=== PATIENT | male | born 1930 | race Caucasian/White ===

== ENCOUNTER 2017-08-14 16:55 | Emergency (ER) | payer MEDICARE, OTHER ==
[~2017-08-14] VITALS: Ht 157.5 cm; Wt 69.5 kg
[~2017-08-14 16:55] MED LIST: AMLO5TAB8 PO; BENA20TA10 PO; CALC500T76 PO; FERR325E14 PO; GLIP10TA12 PO; LANTUS SUBQ; METF100028 PO; PRAV80TA17 PO; VALS40TA3 PO
[2017-08-14 17:12] VITALS: BP 136/64
--- NOTE | 2017-08-14 17:13 | NUR ---
PT W/C ASSISTED TO BED 2.
--- NOTE | 2017-08-14 17:15 | NUR ---
patient was brought in via private vehicle for c/o mouth pain, nasal and left cheek area pain. per daughter, patient had a recent tooth extraction and today is not behaving in his usual self. patient is alert and oriented. respirations are even and unlabored. no cough or dyspnea observed. denies any fever, chills, n,v,d. skin is w,d, i. awaiting md evaluation. will continue to monitor.
--- NOTE | 2017-08-14 17:30 | NUR ---
Dr. Piña at bedside for examination.
[2017-08-14] MEDS ORDERED: NACL 0.9% 1,000 ML IV ONE (17:40)
[2017-08-14] MEDS ORDERED: ACYCLOVIR 700 MG in NACL 0.9% 100 ML IV ONE (17:40)
[2017-08-14] MEDS ORDERED: FLUORESCEIN OPTH STRIP 0.6 MG OP ONE (17:40)
[2017-08-14] MEDS ORDERED: TETRACAINE HCL/PF 0.5% OPTH 4 ML BTL OP ONE (17:40)
[2017-08-14] MEDS ORDERED: ACYCLOVIR 500 MG VIAL IV ONE (17:50)
--- NOTE | 2017-08-14 18:10 | NUR ---
blood samples collected and given to lab.
--- NOTE | 2017-08-14 18:30 | NUR ---
Notired daughter Dot of patient's transfer to [facility], and in agreement.
[2017-08-14 18:38] LABS: CARBON DIOXIDE 23.8 mmol/L (21-32); CHLORIDE 101 mmol/L (98-107); GLUCOSE 110 mg/dL (74-106); POTASSIUM 3.8 mmol/L (3.5-5.1); SODIUM SERUM 136 mmol/L (136-145); UREA NITROGEN, BLOOD 17 mg/dL (7-18)
[2017-08-14 18:45] LABS: BASOPHILS # (AUTO) 0.1 K/uL (0.00-0.22); LYMPHOCYTES # (AUTO) 0.9 K/uL (2.0-11.5); MONOCYTES # (AUTO) 0.6 K/uL (0.8-1.0); RED CELL DISTRIBUTION WIDTH 13.4 % (11.6-13.7)
[2017-08-14 18:48] LABS: HEMATOCRIT 40.2 % (36-52); HEMOGLOBIN 13.4 g/dL (12.0-18.0); MEAN CORPUSCULAR HEMOGLOBIN 30 pg (27-31); MEAN CORPUSCULAR HGB CONC 33 g/dL (33-37); MEAN CORPUSCULAR VOLUME 88 fL (80-94); PLATELET COUNT (AUTO) 197 K/uL (140-450); RED BLOOD CELL COUNT(AUTO) 4.55 MIL/uL (4.20-6.10); WHITE BLOOD COUNT (AUTO) 4.6 K/uL (4.8-10.8)
--- NOTE | 2017-08-14 18:58 | NUR ---
[facility] here, report given regarding patient's condition. Called over to [facility] at [phone], per Bacilio requesting to call back in ten minutes.
--- NOTE | 2017-08-14 19:17 | NUR ---
Follow up made to [facility], report given to SANJU Beal.
--- NOTE | 2017-08-14 19:26 | NUR ---
[facility] TRANSPORT HERE TO BRING PT TO [facility]
[2017-08-14 19:29] VITALS: BP 128/59
--- NOTE | 2017-08-14 19:29 | NUR ---
Patient to be transferred to [facility] ER. 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 Receiving facility has accepting physician and available space. ER physician has signed transfer form. Patient or responsible libertarian has agreed to transfer and signed form. Patient belongings inventoried and will be sent with patient. Copy of nursing notes, lab reports, EKG, Physicians Orders and X-rays to be sent with patient. Report called to SANJU Beal at receiving facility. [facility] here on scene, report given, pt being transferred via gurney to [facility] at this time.
== END 2017-08-14 19:29 | disposition short-term general hospital (02) ==
LOC: MED 16:55
DX: B02.30 Zoster ocular disease, unspecified (principal); E11.9 Type 2 diabetes mellitus without complications; I10 Essential (primary) hypertension; Z90.49 Acquired absence of other specified parts of digestive tract; Z79.899 Other long term (current) drug therapy; Z79.4 Long term (current) use of insulin
CPT/HCPCS: 36415; 80048; 82948; 85025; 96365; 99285; J0133; J7030

== ENCOUNTER 2018-02-25 11:42 | Emergency (ER) | payer MEDICARE, OTHER ==
[~2018-02-25] VITALS: Ht 165.1 cm; Wt 77.1 kg
[2018-02-25 11:50] VITALS: BP 128/59
[2018-02-25] MEDS: IPRATROPIUM 0.02% 0.5 MG/2.5 ML NEBU INH ONE (13:35)
[2018-02-25] MEDS: ALBUTEROL 0.083% 2.5 MG/3 ML NEBU INH ONE (13:35)
[2018-02-25] MEDS: methylPREDNISolone SS 125 MG/2 ML VIAL IVP ONE (13:53)
[2018-02-25] MEDS: NACL 0.9% 500 ML IV SCH (13:54)
[2018-02-25 14:00] LABS: BASOPHILS % (AUTO) 0.3 % (0.0-2.0); EOSINOPHILS # (AUTO) 0.1 K/uL (0-0.4); EOSINOPHILS % (AUTO) 0.4 % (0.0-4.0); HEMATOCRIT 33.4 % (36-52); HEMOGLOBIN 10.6 g/dL (12.0-18.0); LYMPHOCYTES # (AUTO) 1.6 K/uL (2.0-11.5); LYMPHOCYTES % (AUTO) 12.6 % (20.5-51.1); MEAN CORPUSCULAR HEMOGLOBIN 26 pg (27-31); MEAN CORPUSCULAR HGB CONC 32 g/dL (33-37); MEAN CORPUSCULAR VOLUME 82.6 fL (80-94); MONOCYTES # (AUTO) 0.9 K/uL (0.8-1.0); MONOCYTES % (AUTO) 6.6 % (1.7-9.3); NEUTROPHILS # (AUTO) 10.3 K/uL (1.8-7.7); NEUTROPHILS % (AUTO) 80.1 % (42.2-75.2); PLATELET COUNT (AUTO) 281 K/uL (140-450); RED BLOOD CELL COUNT(AUTO) 4.04 MIL/uL (4.20-6.10); RED CELL DISTRIBUTION WIDTH 16.1 % (11.6-13.7); WHITE BLOOD COUNT (AUTO) 12.9 K/uL (4.8-10.8)
[2018-02-25 14:07] LABS: APPEARANCE,URINE CLEAR (CLEAR); BILIRUBIN,URINE 1+ (NEGATIVE); BLOOD, URINE TRACE-I (NEGATIVE); COLOR,URINE ORANGE (YELLOW); LEUKOCYTE ESTERASE ,URINE NEGATIVE (NEGATIVE); NITRITE, URINE NEGATIVE (NEGATIVE); UGLUCOSE NEGATIVE (NEGATIVE)
[2018-02-25 14:17] LABS: ANION GAP 11.9 (8-16); CARBON DIOXIDE 24.7 mmol/L (21-32); CHLORIDE 103 mmol/L (98-107); CREATININE 1.1 mg/dL (0.7-1.3); GLUCOSE 81 mg/dL (74-106); POTASSIUM 3.6 mmol/L (3.5-5.1); SODIUM SERUM 136 mmol/L (136-145); UREA NITROGEN, BLOOD 20 mg/dL (7-18)
[2018-02-25 14:20] LABS: PROTHROMBIN TIME 9.8 secs (10.8-13.4)
[2018-02-25 14:23] LABS: ALBUMIN 3.4 g/dL (3.4-5.0); ASPARTATE AMINOTRANSFERASE 23 U/L (15-37); TOTAL BILIRUBIN 0.8 mg/dL (0.0-1.0)
[2018-02-25 15:16] LABS: RBC,URINE 0-5 (RARE) /HPF (0-5); WBC,URINE 0-5 (RARE) /HPF (0-5)
[2018-02-25 15:50] VITALS: BP 122/53
== END 2018-02-25 15:50 | disposition home or self-care (01) ==
LOC: MED 11:42
DX: B34.9 Viral infection, unspecified (principal); J98.01 Acute bronchospasm; E11.9 Type 2 diabetes mellitus without complications; I10 Essential (primary) hypertension; Z79.4 Long term (current) use of insulin; Z79.899 Other long term (current) drug therapy; Z90.49 Acquired absence of other specified parts of digestive tract
CPT/HCPCS: 36415; 36600; 71045; 80053; 81001; 82803; 83605; 83880; 84484; 85025; 85610; 85730; 87040; 87086; 93005; 94640; 96361; 96374; 99285; J2930; J7030; J7613; J7644; Q0092

== ENCOUNTER 2018-03-03 13:08 | Inpatient (IN) | payer MEDICARE, OTHER ==
[~2018-03-03] VITALS: Ht 167.6 cm; Wt 59.9 kg
[2018-03-03 13:15] VITALS: BP 109/59
--- NOTE | 2018-03-03 13:26 | NUR ---
Patient transferred to bed 5 via wheelchair by nurse. Family at bedside.
--- NOTE | 2018-03-03 13:34 | NUR ---
C/O COUGH WITH SPUTUM AND FEVER X 6 DAYS. DENIES SOB.generlized weakness noted. DENIES N/V/D; SKIN IS PINK/WARM/DRY; awake, alert; LUNGS wheezes BL; HR EVEN AND REGULAR; PT DENIES ANY FEVER, CP, SOB, OR COUGH AT THIS TIME; PATIENT STATES PAIN OF 4/10 AT THIS TIME; VSS; PATIENT POSITIONED FOR COMFORT; HOB ELEVATED; BEDRAILS UP X2; BED DOWN. ER MD MADE AWARE OF PT STATUS.family at bedside.
--- NOTE | 2018-03-03 13:50 | NUR ---
technical assistance consultant at bedside.
[2018-03-03 13:57] LABS: BASOPHILS % (AUTO) 0.2 % (0.0-2.0); EOSINOPHILS # (AUTO) 0.1 K/uL (0-0.4); EOSINOPHILS % (AUTO) 0.5 % (0.0-4.0); HEMATOCRIT 27.6 % (36-52); HEMOGLOBIN 9.1 g/dL (12.0-18.0); LYMPHOCYTES # (AUTO) 1.3 K/uL (2.0-11.5); LYMPHOCYTES % (AUTO) 9.4 % (20.5-51.1); MEAN CORPUSCULAR HEMOGLOBIN 27 pg (27-31); MEAN CORPUSCULAR HGB CONC 33 g/dL (33-37); MEAN CORPUSCULAR VOLUME 80.8 fL (80-94); MONOCYTES # (AUTO) 0.8 K/uL (0.8-1.0); MONOCYTES % (AUTO) 5.4 % (1.7-9.3); NEUTROPHILS % (AUTO) 84.5 % (42.2-75.2); PLATELET COUNT (AUTO) 402 K/uL (140-450); RED BLOOD CELL COUNT(AUTO) 3.42 MIL/uL (4.20-6.10); RED CELL DISTRIBUTION WIDTH 16.2 % (11.6-13.7); WHITE BLOOD COUNT (AUTO) 14.1 K/uL (4.8-10.8)
[2018-03-03 14:15] LABS: ANION GAP 11.9 (8-16); CARBON DIOXIDE 25.5 mmol/L (21-32); CHLORIDE 100 mmol/L (98-107); CREATININE 1.1 mg/dL (0.7-1.3); GLUCOSE 202 mg/dL (74-106); POTASSIUM 3.4 mmol/L (3.5-5.1); SODIUM SERUM 134 mmol/L (136-145); UREA NITROGEN, BLOOD 26 mg/dL (7-18)
[2018-03-03 14:24] LABS: ASPARTATE AMINOTRANSFERASE 28 U/L (15-37); TOTAL BILIRUBIN 0.6 mg/dL (0.0-1.0)
[2018-03-03 14:25] LABS: ALBUMIN 2.2 g/dL (3.4-5.0)
[2018-03-03] MEDS ORDERED: IPRATROPIUM 0.02% 0.5 MG/2.5 ML NEBU INH ONE (14:30)
[2018-03-03] MEDS ORDERED: NACL 0.9% 1,000 ML IV ONE (14:30)
[2018-03-03] MEDS ORDERED: cefTRIAXone 1,000 MG in DEXT 5% MINI-BAG PLUS 50 ML IV ONE (14:30)
[2018-03-03] MEDS ORDERED: ALBUTEROL 0.083% 2.5 MG/3 ML NEBU INH ONE (14:30)
[2018-03-03] MEDS ORDERED: AZITHROMYCIN 500 MG in DEXTROSE 5% 250 ML IV ONE (14:30)
[2018-03-03] MEDS ORDERED: cefTRIAXone 1,000 MG VIAL ONE (14:51)
[2018-03-03] MEDS ORDERED: AZITHROMYCIN 500 MG INJ VIAL IV ONE (14:52)
--- NOTE | 2018-03-03 15:45 | NUR ---
ASKED PT HOW HE IS DOING. PT STATED HE IS FINE. FAMILY AT BEDSIDE.
--- NOTE | 2018-03-03 16:26 | NUR ---
Dr. Dumont evaluating patient at bedside.
[2018-03-03] MEDS ORDERED: LORazepam 2 MG/ML VIAL IM/IVP PRN (16:40)
[2018-03-03] MEDS ORDERED: BISACODYL 5 MG TABEC PO PRN (16:40)
[2018-03-03] MEDS ORDERED: ACETAMINOPHEN 325 MG TAB PO PRN (16:40)
[2018-03-03] MEDS ORDERED: ALBUTEROL SULFATE/IPRATROPIU 3 ML SOL IH PRN (16:40)
[2018-03-03] MEDS ORDERED: MORPHINE SULFATE 2 MG/ML SYR IVP PRN (16:40)
[2018-03-03] MEDS ORDERED: DOCUSATE SODIUM 100 MG GELCAP PO PRN (16:40)
[2018-03-03] MEDS ORDERED: ZOLPIDEM 5 MG TAB PO PRN (16:40)
[2018-03-03] MEDS ORDERED: ONDANSETRON 4 MG/2 ML VIAL IM/IVP PRN (16:40)
[2018-03-03] MEDS ORDERED: MAGNESIUM HYDROXIDE 2400 MG/30 ML UDC PO PRN (16:40)
[2018-03-03] MEDS ORDERED: HYDROcodone/APAP 5/325 MG 1 TAB TAB PO PRN (16:40)
[2018-03-03] MEDS ORDERED: DEXTROSE 50% 50 ML SYR IVP PRN (16:45)
[2018-03-03 17:00] VITALS: BP 119/54
[2018-03-03] MEDS ORDERED: metFORMIN 500 MG TAB PO SCH (17:00)
--- NOTE | 2018-03-03 17:00 | NUR ---
TRANSFERRED PT TO TELE 105 B, REPORT GIVEN TO BRADFORD BILLS. PT VITALS STABLE UPON TRANSFERRING.
--- NOTE | 2018-03-03 17:00 | NUR ---
PT BROUGHT IN FROM ER IN [facility], PT AWAKE ALERT, RESP EVEN UNLABORED ON RA, SKIN WARM DRY COLOR WNL, REPORT RECEIVED FROM VASILIY, PT PLACED ON RESIDENTIAL DESIGNER, INITAIAL ASSESSMEN DONE, PT'S DAUGHTER AND SON AT BEDSIDE, PLAN OF CARE REVIEWED, PT AND FAMILY ORIENTED TO ROOM AND FLOOR, CALL CRABTREE WITHIN REACH, SIDE RAILS UP, BED LOCKED IN LOW POSITION, ALL SAFETY MEASURES IN PLACE, FALL PRECAUTIONS INITIATED. WILL CONTINUE TO MONITOR
[2018-03-03 17:03] LABS: PROTHROMBIN TIME 10.8 secs (10.8-13.4)
[2018-03-03 17:12] LABS: CHOL/HDL RATIO 3.8 (1-4.5); MAGNESIUM 1.5 mg/dL (1.8-2.4); PHOSPHORUS 2.8 mg/dL (2.5-4.9); THYROID STIMULATING HORMONE 3.18 uIU/mL (0.34-3.74)
[2018-03-03] MEDS ORDERED: METF-336 PO (17:38)
[2018-03-03] MEDS ORDERED: VALS80TA PO (17:38)
[2018-03-03] MEDS ORDERED: PRAV40TA3 PO (17:38)
[2018-03-03] MEDS ORDERED: OMEP20TC12 PO (17:38)
[2018-03-03] MEDS ORDERED: PROMETH/CODEINE 6.25-10MG/5ML 5 ML UDC PO PRN (17:55)
--- NOTE | 2018-03-03 18:00 | NUR ---
RICKY PAULINA (DAUGHTER) [phone], NETTIE LEE (SON) [phone]. SPOKE TO THEM VIA TELEPHONE CABIN MAN # [phone] FOR ADMISSION QUESTIONS. IV FLUID STARTED, IV SITE WNL.
[2018-03-03] MEDS: NACL 0.9% 1,000 ML IV SCH (18:09)
[2018-03-03] MEDS: BUDESONIDE 0.25 MG/2 ML NEBU INH SCH (19:11)
[2018-03-03] MEDS: ALBUTEROL SULFATE/IPRATROPIU 3 ML SOL IH SCH (19:11)
--- NOTE | 2018-03-03 19:20 | NUR ---
REPORT GIVEN TO ONCOLOGY REP NURSE, PT GETTING NEB TX, RT AT BEDSIDE.
--- NOTE | 2018-03-03 19:21 | NUR ---
RECEIVED BEDSIDE REPORT FROM DAY SHIFT NURSE BRADFORD RN, PT STABLE, NO DISTRESS NOTED, IV TO R HAND 20G PATENT, INTACT, INFUSING NS @ 100ML/HR, PT ON 1LPM O2 VIA NC, NO SOB, FAMILY BY BEDSIDE, PT STATED HAVING BACK PAIN 5/10, WILL MEDICATE, INITIAL ASSESSMENT DONE, ALL SAFETY PRECAUTION MET, WILL CONTINUE TO MONITOR.
--- NOTE | 2018-03-03 19:48 | NUR ---
PAIN MEDICATION GIVEN PER MD ORDER, PT STATED HAVING BACK PAIN SINCE CHANGE OF SHIFT, PT TOLERATED WELL, NO DISTRESS NOTED, CALL LIGHT WITHIN REACH, WILL CONTINUE TO MONITOR.
[2018-03-03 20:00] VITALS: BP 151/57
[2018-03-03] MEDS ORDERED: MAGNESIUM OXIDE 400 MG TAB PO SCH (20:00)
[2018-03-03] MEDS: GABAPENTIN 100 MG CAP PO SCH (20:55)
[2018-03-03] MEDS: PIPER/TAZO 3.375GM/D5W PREMIX 50 ML IV SCH (20:55)
--- NOTE | 2018-03-03 20:58 | NUR ---
1911 PT GIVEN SPUTUM CUP AND EXPLAINED TO IN DANISH TO GIVE SPUTUM SAMPLE BY DAUGHTER. PT UNABLE TO GIVE SAMPLE AT THIS TIME. PT UNDERSTANDS TO GIVE SAMPLE WHEN HE CAN
[2018-03-03] MEDS ORDERED: POTASSIUM CHLORIDE 10 MEQ TABER PO SCH (21:00)
[2018-03-03] MEDS: BLOOD GLUCOSE MONITORING 1 DEV DEV FS SCH (21:02)
--- NOTE | 2018-03-03 21:05 | NUR ---
DUE MEDICATION ADMINISTERED, PT BLOOD SUGAR 48, D50 IVP GIVEN PER PROTOCOL, PT TOLERATED WELL, WILL RECHECK BLOOD SUGAR IN 15 MINUTES AFTER ADMINISTRATION.
--- NOTE | 2018-03-03 21:25 | NUR ---
RECHECKED PT BLOOD SUGAR 172, PT RESTING, NO DISTRESS NOTED, CALL LIGHT WITHIN REACH, WILL CONTINUE TO MONITOR.
--- NOTE | 2018-03-03 23:55 | NUR ---
CHECKED ON PT, PT SLEEPING, NO DISTRESS NOTED, V/S TAKEN, WNL, PT RESTING, CALL LIGHT WITHIN REACH, WILL CONTINUE TO MONITOR.
[2018-03-04] VITALS: BP 111/38
--- NOTE | 2018-03-04 02:10 | NUR ---
PT SLEEPING, NO DISTRESS NOTED, CALL LIGHT WITHIN REACH, WILL CONTINUE TO MONITOR.
[2018-03-04] MEDS: NACL 0.9% 1,000 ML IV SCH (03:52)
[2018-03-04 04:00] VITALS: BP 121/53
--- NOTE | 2018-03-04 04:10 | NUR ---
ASSIST PT TO SIT ON BEDSIDE CHAIR WHILE BED IS BEING MADE AND CLEANED, PT TOLERATED WELL, CHECKED PT BP, WNL, ASSIST PT BACK TO BED, TOLERATED WELL, NO DISTRESS NOTED, CALL LIGHT WITHIN REACH, WILL CONTINUE TO MONITOR.
[2018-03-04] MEDS: PIPER/TAZO 3.375GM/D5W PREMIX 50 ML IV SCH ×3 (04:35→21:09)
--- NOTE | 2018-03-04 05:40 | NUR ---
PT WENT TO CT VIA WHEELCHAIR, IN STABLE CONDITION
--- NOTE | 2018-03-04 06:00 | NUR ---
PT BACK FROM CT, IN STABLE CONDITION WILL CONTINUE TO MONITOR.
[2018-03-04] MEDS: BLOOD GLUCOSE MONITORING 1 DEV DEV FS SCH ×4 (06:27→21:21)
[2018-03-04] MEDS: PANTOPRAZOLE 40 MG TABEC PO SCH (06:28)
--- NOTE | 2018-03-04 06:28 | NUR ---
CHECKED PT BLOOD SUGAR 66, GAVE PT 2 CRANBERRY JUICE, PT TOLERATED WELL, HELD GLIPIZIDE. PT RESTING, NO DISTRESS NOTED, CALL LIGHT WITHIN REACH.
--- NOTE | 2018-03-04 07:00 | NUR ---
PATIENT WAS SLEEPING BUT WOKE UP MOMENTARILY TO LET ME ASSESS HIM. VITALS ARE STABLE ON ROOM AIR. O2 SATURATIONS ARE 93%. WILL INSTRUCT PATIENT ON INCENTIVE SPIROMETRY USE IN 4 HOURS ONCE HE IS MORE AWAKE.
[2018-03-04] MEDS: BUDESONIDE 0.25 MG/2 ML NEBU INH SCH ×2 (07:03→20:05)
[2018-03-04] MEDS: ALBUTEROL SULFATE/IPRATROPIU 3 ML SOL IH SCH ×3 (07:04→20:01)
[2018-03-04 07:13] LABS: BASOPHILS % (AUTO) 0.2 % (0.0-2.0); EOSINOPHILS # (AUTO) 0.1 K/uL (0-0.4); EOSINOPHILS % (AUTO) 0.8 % (0.0-4.0); HEMATOCRIT 27.6 % (36-52); HEMOGLOBIN 9.2 g/dL (12.0-18.0); LYMPHOCYTES # (AUTO) 1.2 K/uL (2.0-11.5); LYMPHOCYTES % (AUTO) 11.3 % (20.5-51.1); MEAN CORPUSCULAR HEMOGLOBIN 27 pg (27-31); MEAN CORPUSCULAR HGB CONC 33 g/dL (33-37); MEAN CORPUSCULAR VOLUME 80.9 fL (80-94); MONOCYTES # (AUTO) 0.6 K/uL (0.8-1.0); NEUTROPHILS # (AUTO) 8.7 K/uL (1.8-7.7); NEUTROPHILS % (AUTO) 81.7 % (42.2-75.2); PLATELET COUNT (AUTO) 406 K/uL (140-450); RED BLOOD CELL COUNT(AUTO) 3.41 MIL/uL (4.20-6.10); RED CELL DISTRIBUTION WIDTH 16.5 % (11.6-13.7); WHITE BLOOD COUNT (AUTO) 10.6 K/uL (4.8-10.8)
--- NOTE | 2018-03-04 07:25 | NUR ---
ENDORSED PT TO DAY SHIFT NURSE DAIN RN, PT STABLE, NO DISTRESS NOTED, CALL LIGHT WITHIN REACH
--- NOTE | 2018-03-04 07:26 | NUR ---
RECEIVED BEDSIDE REPORT FROM [employer] SALES REPRESENTATIVE NURSE. PATIENT IS SLEEPING. IV IS INTACT, DRY AND PATENT. FALL PRECAUTION INPLACE. CALL LIGHT WITHIN REACH. BED ON LOWEST POSITION. WILL CONTINUE TO MONITOR
[2018-03-04] MEDS ORDERED: glipiZIDE 10 MG TAB PO SCH (07:30)
[2018-03-04 07:54] LABS: ANION GAP 12.6 (8-16); CARBON DIOXIDE 25.7 mmol/L (21-32); CHLORIDE 106 mmol/L (98-107); CREATININE 0.9 mg/dL (0.7-1.3); GLUCOSE 54 mg/dL (74-106); POTASSIUM 3.3 mmol/L (3.5-5.1); SODIUM SERUM 141 mmol/L (136-145); UREA NITROGEN, BLOOD 16 mg/dL (7-18)
[2018-03-04 08:00] VITALS: BP 109/58
[2018-03-04] MEDS ORDERED: metFORMIN 850 MG TAB PO SCH (08:00)
[2018-03-04] MEDS ORDERED: guaiFENesin DM SUGAR FREE 100 MG/5 ML UDBTL PO PRN (08:10)
[2018-03-04] MEDS ORDERED: PROMETH/CODEINE 6.25-10MG/5ML 5 ML UDC PO PRN (08:15)
[2018-03-04 08:20] LABS: MAGNESIUM 1.7 mg/dL (1.8-2.4)
--- NOTE | 2018-03-04 08:39 | NUR ---
PATIENT HAS BEEN SCREENED AND CATEGORIZED HIGH NUTRITION RISK. PATIENT WILL BE SEEN WITHIN 1-2 DAYS OF ADMISSION. 03/04/18 03/05/[address]
[2018-03-04] MEDS ORDERED: INSULIN LANTUS 100 UNITS/ML 10 ML VIAL SUBQ SCH (09:00)
[2018-03-04] MEDS ORDERED: amLODIPine 5 MG TAB PO SCH (09:00)
[2018-03-04] MEDS ORDERED: BENAZEPRIL 20 MG TAB PO SCH (09:00)
[2018-03-04] MEDS: INSULIN LANTUS 100 UNITS/ML 10 ML VIAL SUBQ SCH (09:00)
--- NOTE | 2018-03-04 09:09 | NUR ---
ADMISSION CHART REVIEW DONE FAXED INITIAL REVIEW TO JACKIE, INCLUDING ADMIT ORDER, ER REPORT, H&P, PROGRESS NOTES, MED LIST, XRAYS TO [phone] PHONE [phone] PHONE [phone], [phone]
[2018-03-04] MEDS: ATORVASTATIN 20 MG TAB PO SCH (10:04)
[2018-03-04] MEDS: FERROUS SULFATE 325 MG TABEC PO SCH (10:04)
[2018-03-04] MEDS: LACTOBACILLUS RHAMNOSUS GG 1 EACH CAP PO SCH (10:04)
--- NOTE | 2018-03-04 10:30 | NUR ---
PHYSICAL THERAPY ON GOING AT THE BEDSIDE.
--- NOTE | 2018-03-04 12:00 | NUR ---
PATIENT IS RESTING COMFORTABLY. DAUGHTER AT BEDSIDE. VITAL SIGNS WITHIN NORMAL LIMITS. PATIENT DENIES ANY PAIN AT THIS TIME. WILL CONTINUE TO MONITOR. CALL LIGHT WITHIN REACH
[2018-03-04] MEDS: INSULIN LISPRO SLIDING SCALE 100 UNITS/ML VIAL SUBQ PRN ×3 (12:53→21:20)
--- NOTE | 2018-03-04 13:34 | NUR ---
03/04/18 RD INITIAL ASSESSMENT COMPLETED PLEASE REFER TO NUTRITION ASSESSMENT UNDER CARE ACTIVITY FOR ESTIMATED NUTRITIONAL NEEDS. 1. CONTINUE CCHO 60 GM MECH SOFT DIET TOLERATED 2. ENCOURAGE INCREASING PO INTAKE 3. RECOMMEND GLUCERNA TID 4. RD TO FOLLOW-UP 2-3 DAYS, HIGH RISK MAYA FREY RD
--- NOTE | 2018-03-04 14:43 | NUR ---
RESIDENT DR. SCHULTE NOTIFIED FOR PT'S POTASSIUM AND MAG LEVEL TODAY.
[2018-03-04] MEDS ORDERED: MAG SULF 2000 MG/WATER PREMIX 50 ML IV ONE (14:45)
[2018-03-04] MEDS ORDERED: POTASSIUM CHLORIDE 10 MEQ TABER PO SCH (14:47)
[2018-03-04] MEDS: MAGNESIUM SULFATE 1GM in DEXTROSE 5% 100 ML PREMIX IV SCH ×2 (15:48→17:34)
[2018-03-04 16:00] VITALS: BP 132/57
[2018-03-04] MEDS ORDERED: glipiZIDE 5 MG TAB PO SCH (16:30)
--- NOTE | 2018-03-04 16:55 | NUR ---
PT AWAKE, TALKING TO FAMILY AT THE BEDSIDE. NO COMPLAINTS MADE.
--- NOTE | 2018-03-04 19:30 | NUR ---
ENDORSED PATIENT TO CROP ADJUSTER NURSE. PATIENT IS RESTING COMFORTABLY IN BED. FAMILY AT BEDSIDE. NO DISCOMFORT NOTED. PATIENT IS STABLE.
[2018-03-04] MEDS: POTASSIUM CHLORIDE 10 MEQ TABER PO SCH (21:09)
[2018-03-04] MEDS: GABAPENTIN 100 MG CAP PO SCH (21:10)
[2018-03-04 23:00] VITALS: BP 137/58
--- NOTE | 2018-03-04 23:25 | NUR ---
BED ALARM TRIGGERED, WENT TO PT ROOM, SEEN PT SITTING ON THE FLOOR, ASSISTED BACK TO BED, PER PT INTERPRETED BY FILI JAIMES, PT STOOD UP TO VOID USING THE URINAL BUT SLIPPED AND LANDED ON HIS BUTTOCKS, DENIES ANY BUTTOCKS, HIP AND BACK PAIN, NO SIGNS OF INJURY NOTED, ABLE TO MOVE ALL EXTREMITIES, VITAL SIGNS TAKEN: BP-145/48, HR-80, SAT-95%, PT KEEP ON STATING IN FILIPINO "I'M NARDA". TRANSFERRED PT TO ROOM 124A TO BE CLOSED TO THE NURSES STATION.
--- NOTE | 2018-03-04 23:43 | NUR ---
DR MEJIA MADE AWARE, DR MEJIA WENT TO PT ROOM AND EXAMINED THE PT, PT DENIES ANY PAIN AND DENIES PASSING OUT, ABLE TO MOVE BOTH LEGS WITH GOOD STRENGTH, SIDE RAILS UP AND BED ALARM ON, CALL LIGHT WITHIN REACH.
--- NOTE | 2018-03-04 23:55 | NUR ---
CALLED PT'S DAUGHTER RICKY GALLARDO BUT CENTRAL AFRICAN SPEAKING ONLY, FILI JAIMES INFORMED HER ABOUT PT'S FALL EPISODE AND STABLE CONDITION OF THE PT, SHE STATED SHE WILL COME IN THE MORNING.
--- NOTE | 2018-03-05 02:30 | NUR ---
PT SEEN USING URINAL WHILE ON BED, VOIDED FREELY WITH CLEAR YELLOW URINE, MONITORED CLOSELY.
--- NOTE | 2018-03-05 04:00 | NUR ---
PT SLEEPING, EASILY AROUSABLE, PT OCCASIONALLY TAKES OFF NASAL CANNULA, PUT BACK ON NASAL CANNULA AT 2L, DENIES ANY PAIN, SIDE RAILS UP AND BED ALARM ON.
[2018-03-05] MEDS: PIPER/TAZO 3.375GM/D5W PREMIX 50 ML IV SCH ×3 (04:25→21:35)
[2018-03-05] MEDS: PANTOPRAZOLE 40 MG TABEC PO SCH (05:52)
[2018-03-05] MEDS: INSULIN LISPRO SLIDING SCALE 100 UNITS/ML VIAL SUBQ PRN ×4 (05:56→21:03)
--- NOTE | 2018-03-05 06:00 | NUR ---
BLOOD SUGAR CHECKED WITH 161 RESULT, COVERAGE GIVEN, DUE PO MEDICATION TAKEN, PT PUT BACK ON O2 2L NASAL CANNULA, SIDE RAILS UP AND BED ALARM ON, MONITORED CLOSELY.
[2018-03-05 06:32] LABS: BASOPHILS % (AUTO) 0.3 % (0.0-2.0); EOSINOPHILS # (AUTO) 0.2 K/uL (0-0.4); EOSINOPHILS % (AUTO) 2.3 % (0.0-4.0); HEMATOCRIT 25.3 % (36-52); HEMOGLOBIN 8.4 g/dL (12.0-18.0); LYMPHOCYTES # (AUTO) 1.2 K/uL (2.0-11.5); LYMPHOCYTES % (AUTO) 14.6 % (20.5-51.1); MEAN CORPUSCULAR HEMOGLOBIN 27 pg (27-31); MEAN CORPUSCULAR HGB CONC 33 g/dL (33-37); MEAN CORPUSCULAR VOLUME 80.8 fL (80-94); MONOCYTES # (AUTO) 0.6 K/uL (0.8-1.0); MONOCYTES % (AUTO) 7.1 % (1.7-9.3); NEUTROPHILS # (AUTO) 6.2 K/uL (1.8-7.7); NEUTROPHILS % (AUTO) 75.7 % (42.2-75.2); PLATELET COUNT (AUTO) 360 K/uL (140-450); RED BLOOD CELL COUNT(AUTO) 3.13 MIL/uL (4.20-6.10); WHITE BLOOD COUNT (AUTO) 8.1 K/uL (4.8-10.8)
[2018-03-05 06:43] LABS: ANION GAP 13.4 (8-16); CARBON DIOXIDE 23.1 mmol/L (21-32); CHLORIDE 105 mmol/L (98-107); CREATININE 0.9 mg/dL (0.7-1.3); GLUCOSE 166 mg/dL (74-106); POTASSIUM 4.5 mmol/L (3.5-5.1); SODIUM SERUM 137 mmol/L (136-145); UREA NITROGEN, BLOOD 10 mg/dL (7-18)
[2018-03-05 06:48] LABS: MAGNESIUM 2.1 mg/dL (1.8-2.4); PHOSPHORUS 1.9 mg/dL (2.5-4.9)
[2018-03-05] MEDS: BLOOD GLUCOSE MONITORING 1 DEV DEV FS SCH ×4 (06:57→21:01)
[2018-03-05] MEDS: ALBUTEROL SULFATE/IPRATROPIU 3 ML SOL IH SCH ×3 (07:31→19:59)
[2018-03-05] MEDS: BUDESONIDE 0.25 MG/2 ML NEBU INH SCH ×2 (07:31→19:59)
--- NOTE | 2018-03-05 07:38 | NUR ---
PT SLEEPING, NO DISTRESS NOTED, REPORT GIVEN TO RN DAIN FOR CONTINUITY OF CARE.
--- NOTE | 2018-03-05 07:40 | NUR ---
RECEIVED REPORT FROM FINISHED METAL REPAIRER NURSE. PATIENT IS SLEEPING IN BED. IV TO LEFT HAND IS CLEAN, DRY, AND INTACT. NO DISTRESS NOTED AT THIS TIME. BED ALARM ON. BED ON LOWEST POSITION. CALL LIGHT WITHIN REACH. WILL CONTINUE TO MONITOR
[2018-03-05 08:00] VITALS: BP 134/59
--- NOTE | 2018-03-05 08:46 | NUR ---
FAXED CONCURRENT REVIEW TO JACKIE. ALSO PROGRESS NOTES, MED SHEETS. FAXED TO [phone] PHONE [phone] REF NUMBER [phone]
--- NOTE | 2018-03-05 10:00 | NUR ---
PATIENT IS RESTING IN BED. DAUGHTER IS AT BEDSIDE. NO DISTRESS NOTED AT THIS TIME. PATIENT DENIES ANY PAIN. CALL LIGHT WITHIN REACH WILL CONTINUE TO MONITOR.
[2018-03-05] MEDS: LACTOBACILLUS RHAMNOSUS GG 1 EACH CAP PO SCH (10:28)
[2018-03-05] MEDS: ATORVASTATIN 20 MG TAB PO SCH (10:29)
[2018-03-05] MEDS: FERROUS SULFATE 325 MG TABEC PO SCH (10:29)
[2018-03-05] MEDS: POTASSIUM CHLORIDE 10 MEQ TABER PO SCH (10:29)
[2018-03-05] MEDS: INSULIN LANTUS 100 UNITS/ML 10 ML VIAL SUBQ SCH (10:36)
--- NOTE | 2018-03-05 11:41 | NUR ---
Car Rental Service Attendant Note: I faxed inquiry to [facility], phone number , fax . Per Shade from [facility], she received inquiry, checked eligibility benefits and they aren't contracted with [facility], Case Jenna Kate made aware.
--- NOTE | 2018-03-05 12:02 | NUR ---
I FAXED ORDER AND PT NOTES TO JACKIE [phone] I CALLED MEJIA AND SPOKE WITH , X [phone]. I INFORMED HER ABOUT [facility] SAYING THAT THEY ARE NOT CONTRACTED WITH THE [facility]. SAID THAT [facility]ACKIE IS AT RISK FOR THE HOME HEALTH AND THAT VITA AT [facility] COULD CALL HER. I CALLED VITA AND INFORMED HER AND GAVE HER THE PHONE NUMBER TO .
--- NOTE | 2018-03-05 12:18 | NUR ---
RECEIVED CALL FROM VITA AT [facility]. SHE SAID THEY ARE NOT TAKING MEJIA PATIENT.
[2018-03-05] MEDS: SODIUM PHOS / POTASSIUM PHOS 1 PKT PDR PO SCH ×2 (12:38→18:08)
--- NOTE | 2018-03-05 13:08 | NUR ---
Gyn Physician Note: I faxed inquiry to [facility], phone number , fax and [facility], phone number , fax . Per Shantal from [facility], they aren't able to accept [place] patients because [place] has not paid them for their services. Pending response from Yosef at [facility] .
--- NOTE | 2018-03-05 14:15 | NUR ---
PHYSICAL THERAPY CO-SIGN The Physical Therapy Progress Notes documented by Textile Conversion Manager have been reviewed. I concur with the documentation of this MUSEUM DOCENT. Plan: continue as per plan of care if he remains in this hospital. Patient made some good progress with PT today with increased distance made. Reviewed/Co-Signed by: Estelle Pizarro DPT Documentation Done by: Sawyer Adams PTA
--- NOTE | 2018-03-05 15:17 | NUR ---
Air Chief Marshal Note: I faxed inquiry to [facility] ([facility] is contracted with [facility]). Per Tello from [facility] , patient has been accepted and may go room 208B, accepting physician is , lining caser Lavinia cortez and Dr.Kramer cortez. I called patient's daughter Dot Downs (speaks Sami, not fluent in Guatemalan), per Dot, she is in agreement with patient being transfer to [facility] for physical therapy upon discharge Addendum: 03/06/18 at 0844 by Gabrielle Franz Late entry for 03/05/18: Per patient's daughter Dot Downs (speaks Sami, not fluent in Guatemalan), she has the address and phone number of [facility] and is familiar with facility.
[2018-03-05 16:00] VITALS: BP 115/50
--- NOTE | 2018-03-05 16:50 | NUR ---
PHYSICAL THERAPY CO-SIGN The Physical Therapy Progress Notes documented by Coal Chemist have been reviewed. Reviewed/Co-Signed by: Denice Ma PT Documentation Done by:PRINCE ARSHAD WELL LOGGING MUD ANALYSIS CAPTAIN Addendum: 03/07/18 at 1005 by Denice Ma PT Amended: Links added.
--- NOTE | 2018-03-05 17:00 | NUR ---
PATIENT IS SLEEPING IN BED IN STABLE CONDITION FAMILY IS AT BEDSIDE. BED ON LOWEST POSITION. CALL LIGHT WITHIN REACH.
--- NOTE | 2018-03-05 18:15 | NUR ---
PATIENT HAS BEEN USING THE URINAL IN BED. FAMILY HAS BEEN AT BEDSIDE THROUGHOUT THE DAY. CALL LIGHT WITHIN REACH. WILL CONTINUE TO MONITOR.
--- NOTE | 2018-03-05 19:31 | NUR ---
ENDORSED PATIENT TO SOLUTION DEVELOPER NURSE. PATIENT HAS HISTORY OF FALLS. BED ALARM IS ON AND CALL LIGHT WITHIN REACH. NO DISTRESS NOTED AT THIS TIME.
--- NOTE | 2018-03-05 19:32 | NUR ---
RECEIVED PT IN STABLE CONDITION FROM AM NURSE. AWAKE,ALERT AND ORIENTED X3-4. MED SURG PT. WITH FAMILY MEMBERS AT BEDSIDE. IV ACCESS ON THE LT HAND #20, CLEAR AND PATENT. BED ON LOWEST POSITION, URINAL AND CALL LIGHT WITHIN EASY REACH. DUE TO PREVIOUS FALL, BED ALARM ON . INSTRUCTED TO CALL IF NEED TO GET UP OR FOR ANY ASSISTANCE NEEDED. PLAN OF CARE DISCUSSED AND VERBALIZED UNDERSTANDING. WILL CONTINUE TO MONITOR.
--- NOTE | 2018-03-05 19:45 | NUR ---
PT MOVED TO ROOM 110B FOR CLOSER MONITORING. ENFORCED HIGH RISK FOR FALL PROTOCOL.
--- NOTE | 2018-03-05 20:00 | NUR ---
ENDORSED PT IN STABLE CONDITION TO WING BOURGEOIS LVN FOR CONTINUITY OF CARE.
--- NOTE | 2018-03-05 20:01 | NUR ---
RECD. RESTING IN BED, AWAKE, A/OX3, WITH FORGETFULNESS. RESPIRATION EVEN AND UNLABORED. IV SALINE LOCK AT THE RIGHT HAND G20, PATENT AND INTACT. NOTED CRACKLES LEFT LOBE, DIMINISHED IN THE RIGHT LOBE ON BILATERAL AUSCULTATION. OCCASIONAL DRY COUGHING NOTED. SAFETY MEASURES ENFORCED. BED ON ALARM. PLAN OF CARE FOR THE SHIFT DISCUSSED WITH PATIENT AND FAMILY. VERBALIZED UNDERSTANDING. DENIES PAIN 0/10.
[2018-03-05] MEDS: GABAPENTIN 100 MG CAP PO SCH (20:59)
--- NOTE | 2018-03-05 21:00 | NUR ---
DUE PO MEDICATIONS GIVEN. ATE 50% OF SNACK.
--- NOTE | 2018-03-05 22:00 | NUR ---
SUDDENTLY GET OUT OF BED WITHOUT CALLING NURSE, ASSISTED TO STAND AND USE THE URINAL. BACK TO BED, SAFETY MAINTAINED.
--- NOTE | 2018-03-05 23:01 | NUR ---
Patient's Plan of Care was discussed and reviewed with REHABILITATION PSYCHOLOGIST: WING BOURGEOIS
[2018-03-06] VITALS: BP 116/44
--- NOTE | 2018-03-06 02:00 | NUR ---
SLEEPING COMFORTABLY IN BED.
[2018-03-06] MEDS: PIPER/TAZO 3.375GM/D5W PREMIX 50 ML IV SCH ×3 (05:09→21:40)
--- NOTE | 2018-03-06 05:15 | NUR ---
RESTING IN BED, NAKED. REORIENTED TO HOSPITAL SETTING. ASSISTED BY FISH SEINER TO PUT GOWN BACK, CLEANSED AND MADE COMFORTABLE IN BED.
[2018-03-06] MEDS: PANTOPRAZOLE 40 MG TABEC PO SCH (06:02)
[2018-03-06] MEDS: BLOOD GLUCOSE MONITORING 1 DEV DEV FS SCH ×4 (06:08→20:47)
[2018-03-06] MEDS: INSULIN LISPRO SLIDING SCALE 100 UNITS/ML VIAL SUBQ PRN ×4 (06:11→20:50)
--- NOTE | 2018-03-06 06:21 | NUR ---
CONDITION REMAIN STABLE. SAFETY MAINTAINED DURING SHIFT. WILL ENDORSE TO AM NURSE FOR CONTINUITY OF CARE.
--- NOTE | 2018-03-06 07:10 | NUR ---
ENDORSED TO AM NURSE FOR CONTINUITY OF CARE.
[2018-03-06] MEDS: ALBUTEROL SULFATE/IPRATROPIU 3 ML SOL IH SCH ×3 (07:13→19:34)
[2018-03-06] MEDS: BUDESONIDE 0.25 MG/2 ML NEBU INH SCH ×2 (07:14→19:34)
--- NOTE | 2018-03-06 07:20 | NUR ---
RECEIVED PT FROM PRODUCTION FOREMAN NURSEWING, PT IS AWAKE LYING ON THE BED, WITH RT ON THE BEDSIDE AND ABOUT TO GIVE A BREATHING TREATMENT TO THE PT. SAFETY PRECAUTION ENFORCED, BED IN LOW POSITION, BED ALARM ACTIVATED, YELLOW SIGN POSTED, YELLOW GOWN AND ARM BAND IN PLACED, SIDE RAILS ARE UP, PT HAS AN IV LINE ON THE LEFT HAND G.20, ON SALINE LOCK, INTACT. PT SHOWS NO SIGN OF DISTRESS AND WILL CONTINUE TO MONITOR PT.
[2018-03-06 08:00] VITALS: BP 128/55
--- NOTE | 2018-03-06 08:10 | NUR ---
PT IS AWAKE AND LYING ON THE BED, VITAL SIGN TAKEN AND IS WITHIN NORMAL LIMKIT AND IS STABLE. NO SIGN OF DISTRESS NOTED. WILL CONTINUE TO MONITOR PT.
[2018-03-06] MEDS: ATORVASTATIN 20 MG TAB PO SCH (09:26)
[2018-03-06] MEDS: FERROUS SULFATE 325 MG TABEC PO SCH (09:26)
[2018-03-06] MEDS: LACTOBACILLUS RHAMNOSUS GG 1 EACH CAP PO SCH (09:26)
[2018-03-06] MEDS: INSULIN LANTUS 100 UNITS/ML 10 ML VIAL SUBQ SCH (09:32)
--- NOTE | 2018-03-06 09:40 | NUR ---
URINE SAMPLE WAS COLLECTED FROM THE PT. SAMPLE WAS SENT TO THE LAB FOR URINALYSIS PROFILE.
--- NOTE | 2018-03-06 10:10 | NUR ---
PT'S DAUGHTER IS ON THE BEDSIDE WITH THE PT, SPOKE TO DAUGHTER AND TOLD THE MANAGEMENT DONE TO THE PT, DAUGHTER VERBALIZED UNDERSTANDING.
[2018-03-06 10:55] LABS: BASOPHILS % (AUTO) 0.3 % (0.0-2.0); EOSINOPHILS # (AUTO) 0.2 K/uL (0-0.4); EOSINOPHILS % (AUTO) 2.8 % (0.0-4.0); HEMATOCRIT 26.6 % (36-52); HEMOGLOBIN 8.8 g/dL (12.0-18.0); LYMPHOCYTES # (AUTO) 0.9 K/uL (2.0-11.5); LYMPHOCYTES % (AUTO) 15.9 % (20.5-51.1); MEAN CORPUSCULAR HEMOGLOBIN 27 pg (27-31); MEAN CORPUSCULAR HGB CONC 33 g/dL (33-37); MEAN CORPUSCULAR VOLUME 81.9 fL (80-94); MONOCYTES # (AUTO) 0.5 K/uL (0.8-1.0); MONOCYTES % (AUTO) 8.2 % (1.7-9.3); NEUTROPHILS # (AUTO) 4.4 K/uL (1.8-7.7); NEUTROPHILS % (AUTO) 72.8 % (42.2-75.2); PLATELET COUNT (AUTO) 414 K/uL (140-450); RED BLOOD CELL COUNT(AUTO) 3.24 MIL/uL (4.20-6.10); RED CELL DISTRIBUTION WIDTH 16.3 % (11.6-13.7)
[2018-03-06 11:11] LABS: ANION GAP 11.1 (8-16); CARBON DIOXIDE 25.2 mmol/L (21-32); CHLORIDE 101 mmol/L (98-107); GLUCOSE 334 mg/dL (74-106); POTASSIUM 4.3 mmol/L (3.5-5.1); SODIUM SERUM 133 mmol/L (136-145); UREA NITROGEN, BLOOD 10 mg/dL (7-18)
--- NOTE | 2018-03-06 11:16 | NUR ---
Banquet Coordinator Note: Bernabe Myers from [facility] ([facility] is contracted with [facility]) , they still have a bed available for patient, room 208B, accepting physician is , casework manager Dora kidd aware.
[2018-03-06 11:17] LABS: MAGNESIUM 1.9 mg/dL (1.8-2.4); PHOSPHORUS 2.9 mg/dL (2.5-4.9)
--- NOTE | 2018-03-06 11:20 | NUR ---
PT CAME TO THE PT'S ROOM AND ASSESSED PT. NO SOB NOTED. WILL CONTINUE TO MONITOR PT.
--- NOTE | 2018-03-06 12:17 | NUR ---
PT IS AWAKE AND ABOUT TO HAVE HIS LUNCH, MEDICATION GIVEN VIA IVPB AND BLOOD GLUCOSE CHECKED DONE AND RESULT IS 331 AND INSULIN OF 8 UNITS WAS GIVEN TO PT AND PT TOLERATED IT. NO SIGN OF DISTRESS NOTED AND WILL CONTINUE TO MONITOR PT.
--- NOTE | 2018-03-06 13:00 | NUR ---
PHYSICAL THERAPY CO-SIGN The Physical Therapy Progress Notes documented by Natural Resources Instructor have been reviewed. I concur with the documentation of this ENGAGEMENT LEAD. Plan: continue as per plan of care as he continues to make good and steady progress with PT. Reviewed/Co-Signed by: Estelle Pizarro DPT Documentation Done by: Sawyer Adams ENGAGEMENT LEAD Addendum: 03/06/18 at 1410 by Estelle Pizarro PT Amended: Links added.
[2018-03-06 14:07] LABS: APPEARANCE,URINE CLEAR (CLEAR); BILIRUBIN,URINE NEGATIVE (NEGATIVE); BLOOD, URINE NEGATIVE (NEGATIVE); COLOR,URINE YELLOW (YELLOW); LEUKOCYTE ESTERASE ,URINE NEGATIVE (NEGATIVE); NITRITE, URINE NEGATIVE (NEGATIVE); PH,URINE 6.5 (5.0-9.0); UGLUCOSE NEGATIVE (NEGATIVE)
--- NOTE | 2018-03-06 15:00 | NUR ---
PT IS DOING THE INCENTIVE SPIROMETER WITH THE ASSISTANCE OF THE DAUGHTER, PT DID 8 BLOWS UP TO THE LEVEL OF 1000. NO SIGN OF DISTRESS NOTED AND WILL CONTINUE TO MONITOR PT.
[2018-03-06 16:00] VITALS: BP 124/50
--- NOTE | 2018-03-06 16:30 | NUR ---
PT IS AWAKE AND DAUGHTER IS ON THE BEDSIDE, VITAL SIGN CHECKED AND IS WITHIN NORMAL LIMITS. WILL CONTINUE TO MONITOR PT.
--- NOTE | 2018-03-06 17:04 | NUR ---
PT IS AWAKE WITH DAUGHTER ON THE BEDSIDE, BLOOD GLUCOSE CHECK DONE AND RESULT IS 290, INSULIN COVERAGE NEEDED. INSULIN OF 6 UNITS GIVEN TO PT, SUBQ AT THE RT UA. JES PATRICK PT.
--- NOTE | 2018-03-06 19:15 | NUR ---
ENDORSED PT TO MISSIONARY COORDINATOR NURSE, WING, FOR CONTINUITY OF CARE, PT IS STABLE AT THIS TIME WITH DAUGHTER ON THE BEDSIDE AND IS VERBALIZING THE NEED TO AMBULATE.
--- NOTE | 2018-03-06 19:16 | NUR ---
RECD. SITTING ON CHAIR, AWAKE, A/OX3, RESPIRATION EVEN AND UNLABORED, SEEMS WEAK. IV SALINE LOCK AT THE LEFT HAND G20, PATENT AND INTACT. ON 02 AT 2 LITERS VIA N/C, 02 SAT - 97%. STILL WITH OCCASIONAL UNPRODUCTIVE COUGHING, ON SCHEDULED BREATHING TREATMENTS AND ANTIBIOTICS. ENCOURAGED DEEP BREATHING. PLAN OF CARE FOR THE SHIFT DISCUSSED WITH PATIENT AND DAUGHTER, VERBALIZED UNDERSTANDING. DENIES PAIN 0/10.
[2018-03-06] MEDS: GABAPENTIN 100 MG CAP PO SCH (20:29)
--- NOTE | 2018-03-06 20:30 | NUR ---
DUE PO MEDICATION GIVEN. ATE ON 10% OF THE SNACK FOR THE NIGHT.
[2018-03-07] VITALS: BP 125/50
--- NOTE | 2018-03-07 | NUR ---
SLEEPING COMFORTABLY IN BED.
[2018-03-07] MEDS: PIPER/TAZO 3.375GM/D5W PREMIX 50 ML IV SCH ×2 (04:35→13:11)
[2018-03-07] MEDS: BLOOD GLUCOSE MONITORING 1 DEV DEV FS SCH ×2 (05:21→11:30)
[2018-03-07] MEDS: INSULIN LISPRO SLIDING SCALE 100 UNITS/ML VIAL SUBQ PRN ×2 (05:24→12:34)
[2018-03-07] MEDS: PANTOPRAZOLE 40 MG TABEC PO SCH (05:29)
--- NOTE | 2018-03-07 06:04 | NUR ---
CLEANED GONZALES ACCIDENTALLY VOIDED ON THE FLOOR, CLEANSED AND ASSISTED BACK TO BED, SAFETY MAINTAINED.
--- NOTE | 2018-03-07 06:45 | NUR ---
CONDITION REMAIN STABLE. WILL ENDORSE TO AM NURSE FOR CONTINUITY OF CARE.
--- NOTE | 2018-03-07 07:10 | NUR ---
ENDORSED TO AM NURSE FOR CONTINUITY OF CARE.
--- NOTE | 2018-03-07 07:15 | NUR ---
RECEIVED PT FROM ASSISTANT PLANT CONTROLLER NURSEWING, PT IS AWAKE AND LYING ON THE BED WITH NC IN PLACE AT 2L O2 AND AN IV LINE ON THE LEFT AC G. 20 ON SALINE LOCK, INTACT, SIDE RAILS ARE UP AND CALL LIGHT WITHIN REACH, FALL PRECAUTION ENFORCED, BED IN LOW POSITION, YELLOW SIGN, YELLOW BAND AND YELLOW GOWN IN PLACE. BED ALARM ACTIVATED. PT DENIES PAIN AT THIS TIME AND NO SIGN OF DISTRESS NOTED. WILL CONTINUE TO MONITOR PT.
--- NOTE | 2018-03-07 07:40 | NUR ---
DR. JEFFREY AND THE RESIDENT DOCTORS CAME TO THE PT'S ROOM AND CHECKED ON PT.
[2018-03-07] MEDS: BUDESONIDE 0.25 MG/2 ML NEBU INH SCH (07:55)
[2018-03-07] MEDS: ALBUTEROL SULFATE/IPRATROPIU 3 ML SOL IH SCH ×2 (07:55→13:55)
[2018-03-07 08:00] VITALS: BP 127/59
--- NOTE | 2018-03-07 08:05 | NUR ---
RESPIRATORY THERAPY IS GIVING A BREATHING TREATMENT TO THE PT NOW, PT IS TOLERATING IT AND NO SIGN OF DISTRESS NOTED. WILL MONITOR PT.
[2018-03-07] MEDS ORDERED: LANTUS SUBQ (08:14)
--- NOTE | 2018-03-07 08:15 | NUR ---
PT IS AWAKE WITH FAMILY ON THE BEDSIDE, VITAL SIGNS TAKEN AND IS WITHIN NORMAL LIMITS AND STABLE. NO SIGN OF DISTRESS NOTED AND WILL CONTINUE TO MONITOR.
[2018-03-07] MEDS ORDERED: DEXT118S25 PO (08:18)
--- NOTE | 2018-03-07 09:04 | NUR ---
FAXED MUSIC NOTES, MED SHEETS AND ORDER TO JACKIE [phone] PHONE [phone] Addendum: 03/07/18 at 0909 by Lavinia Hayden CM FAXED ORDER FOR TRANSFER TO [facility]
[2018-03-07 09:35] LABS: ANION GAP 11.2 (8-16); CARBON DIOXIDE 26.6 mmol/L (21-32); CHLORIDE 102 mmol/L (98-107); GLUCOSE 248 mg/dL (74-106); POTASSIUM 3.8 mmol/L (3.5-5.1); SODIUM SERUM 136 mmol/L (136-145); UREA NITROGEN, BLOOD 13 mg/dL (7-18)
[2018-03-07 09:37] LABS: MAGNESIUM 1.9 mg/dL (1.8-2.4)
[2018-03-07] MEDS: ATORVASTATIN 20 MG TAB PO SCH (09:46)
[2018-03-07] MEDS: LACTOBACILLUS RHAMNOSUS GG 1 EACH CAP PO SCH (09:46)
[2018-03-07] MEDS: FERROUS SULFATE 325 MG TABEC PO SCH (09:47)
[2018-03-07] MEDS: INSULIN LANTUS 100 UNITS/ML 10 ML VIAL SUBQ SCH (09:49)
[2018-03-07 09:54] LABS: BASOPHILS # (AUTO) 0.1 K/uL (0.00-0.22); BASOPHILS % (AUTO) 0.7 % (0.0-2.0); EOSINOPHILS # (AUTO) 0.2 K/uL (0-0.4); EOSINOPHILS % (AUTO) 2.5 % (0.0-4.0); HEMATOCRIT 29.1 % (36-52); HEMOGLOBIN 9.3 g/dL (12.0-18.0); LYMPHOCYTES # (AUTO) 1.6 K/uL (2.0-11.5); LYMPHOCYTES % (AUTO) 21.1 % (20.5-51.1); MEAN CORPUSCULAR HEMOGLOBIN 26 pg (27-31); MEAN CORPUSCULAR HGB CONC 32 g/dL (33-37); MEAN CORPUSCULAR VOLUME 82.2 fL (80-94); MONOCYTES # (AUTO) 0.6 K/uL (0.8-1.0); MONOCYTES % (AUTO) 7.6 % (1.7-9.3); NEUTROPHILS # (AUTO) 5.1 K/uL (1.8-7.7); NEUTROPHILS % (AUTO) 68.1 % (42.2-75.2); PLATELET COUNT (AUTO) 453 K/uL (140-450); RED BLOOD CELL COUNT(AUTO) 3.54 MIL/uL (4.20-6.10); RED CELL DISTRIBUTION WIDTH 16.2 % (11.6-13.7); WHITE BLOOD COUNT (AUTO) 7.6 K/uL (4.8-10.8)
--- NOTE | 2018-03-07 10:39 | NUR ---
PT PRINCE IS WITH THE PT NOW AND ASSESSING THE PT'S GAIT. NO SIGN OF DISTRESS NOTED ON THE PT. WILL MONITOR.
--- NOTE | 2018-03-07 10:45 | NUR ---
PT WAS SEEN AMBULATING IN THE HALLWAY WITH THE USE OF A WALKER, WITH PT PRINCE, GAIT IS STABLE, NO SOB NOTED. WILL MONITOR.
[2018-03-07] MEDS ORDERED: ALBU0.0912 IH (11:29)
--- NOTE | 2018-03-07 11:52 | NUR ---
RECEIVED A CALL FROM ADONIS FROM [facility]. THEY RECEIVED AUTH FROM JACKIE [id number].
--- NOTE | 2018-03-07 12:16 | NUR ---
NUSRAT FROM CALLED AND INFORMED THAT PT WILL BE DISCHARGED TO [facility], UNDER THE SERVICE OF DR. RODRIGUEZ AND WILL BE IN ROOM 208-B AND PICK-UP WILL BE AT 1315 BY [facility]. ACKNOWLEDGED AND WILL FACILITATE DISCHARGE.
--- NOTE | 2018-03-07 12:17 | NUR ---
CALLED JACKIE AND WAS REFERED FROM [facility] TO THE [facility] DEPARTMENT FOR DISCHARGE. I CALLED AND SPOKE WITH DAMIÁN, SHE GAVE ME AUTH FOR [facility] [id number]. CALLED AND SET UP TRANSPORT WITH FOR 1:15P.M. I INFORMED SUSAN BILLS OF PICKUP TIME. [facility] ROOM 208A. INFORMED SUSAN BILLS
--- NOTE | 2018-03-07 13:35 | NUR ---
CALLED [facility] AND GAVE REPORT TO MIKE GARDNER, DISCHARGED PRESCRIPTIONS WERE MENTIONED ALSO.
--- NOTE | 2018-03-07 15:00 | NUR ---
DISCHARGED PT VIA WHEELCHAIR WITH THE TRANSPORT PERSONNEL, WITH THE COMPANY OF THE DAUGHTER, DISCHARGED INSTRUCTIONS AND TEACHINGS GIVEN TO PT AND DAUGHTER AND PT VERBALIZED UNDERSTANDING. PT HAS AN IV LINE ON THE RT HAND AND WAS LEFT IN PLACED AND INTACT ON A SALINE LOCK. [facility] AND THE RECEIVING PHYSICIAN IS DR. RODRIGUEZ. PT IS STABLE AT THIS TIME.
--- NOTE | 2018-03-07 16:04 | NUR ---
PHYSICAL THERAPY CO-SIGN The Physical Therapy Progress Notes documented by Heel Top Lift Splitter have been reviewed. Reviewed/Co-Signed by: Denice Ma PT Documentation Done by:PRINCE ARSHAD LAB[employer] Addendum: 03/07/18 at 1605 by Denice Ma PT Amended: Links added.
== END 2018-03-07 15:00 | DRG 871 ==
LOC: MED 13:08 → MTU 16:09
PROVIDERS: ADMIT General Practice; ATTEND General Practice
DX: A41.9 Sepsis, unspecified organism (principal); J69.0 Pneumonitis due to inhalation of food and vomit; E43 Unspecified severe protein-calorie malnutrition; D68.59 Other primary thrombophilia; E87.1 Hypo-osmolality and hyponatremia; I10 Essential (primary) hypertension; E87.6 Hypokalemia; K21.9 Gastro-esophageal reflux disease without esophagitis; E78.5 Hyperlipidemia, unspecified; E11.9 Type 2 diabetes mellitus without complications; E78.00 Pure hypercholesterolemia, unspecified; G90.9 Disorder of the autonomic nervous system, unspecified; E83.39 Other disorders of phosphorus metabolism; E11.65 Type 2 diabetes mellitus with hyperglycemia; E11.69 Type 2 diabetes mellitus with other specified complication; Z68.24 Body mass index [BMI] 24.0-24.9, adult; Z79.84 Long term (current) use of oral hypoglycemic drugs; Z79.4 Long term (current) use of insulin; Z79.899 Other long term (current) drug therapy; Z90.49 Acquired absence of other specified parts of digestive tract; Z68.21 Body mass index [BMI] 21.0-21.9, adult
CPT/HCPCS: 36415; 70450; 71045; 80048; 80053; 81003; 82948; 83036; 83605; 83690; 83735; 83880; 84100; 84134; 84443; 84484; 85025; 85610; 85730; 87040; 87081; 93005; 94640; 96365; 97110; 97116; 97530; 99285; J0456; J0696; J1644; J1815; J2543; J7030; J7060; J7613; J7620; J7626; J7644; Q0092

== ENCOUNTER 2018-05-12 15:08 | Emergency (ER) | payer MEDICARE, OTHER ==
[~2018-05-12] VITALS: Ht 177.8 cm; Wt 63.5 kg
[~2018-05-12 15:08] MED LIST changes: +ALBU0.0912 IH; -AMLO5TAB8 PO; -BENA20TA10 PO; +DEXT118S25 PO; -FERR325E14 PO; +METF-336 PO; -METF100028 PO; +OMEP20TC12 PO; +PRAV40TA3 PO; -PRAV80TA17 PO; -VALS40TA3 PO; +VALS80TA PO
[2018-05-12 15:16] VITALS: BP 112/67
--- NOTE | 2018-05-12 15:18 | NUR ---
PT WC'D TO BED 9
--- NOTE | 2018-05-12 15:23 | NUR ---
BIB SELF. PATIENT PRESENTS TO ED WITH RIGHT HIP PAIN. PT STATES NO KNOWN CAUSE. IT STARTED SUDDENLY AT 4 AM. DENIES N/V/D; SKIN IS PINK/WARM/DRY; AAOX4 WITH EVEN AND STEADY GAIT; LUNGS CLEAR BL; HR EVEN AND REGULAR; PT DENIES ANY FEVER, CP, SOB, OR COUGH AT THIS TIME; PATIENT STATES PAIN OF 9/10 AT THIS TIME; VSS; PATIENT POSITIONED FOR COMFORT; HOB ELEVATED; BEDRAILS UP X2; BED DOWN. ER MD MADE AWARE OF PT STATUS.
[2018-05-12] MEDS ORDERED: KETOROLAC 60 MG/2 ML VIAL IM ONE (16:05)
[2018-05-12 16:25] VITALS: BP 112/67
--- NOTE | 2018-05-12 16:25 | NUR ---
Patient discharged with v/s stable. Written and verbal after care instructions given and explained. Patient alert, oriented and verbalized understanding of instructions. Ambulatory with WALKER. All questions addressed prior to discharge. ID band removed. Patient advised to follow up with PMD. Rx of NORCO given. Patient educated on indication of medication including possible reaction and side effects. Opportunity to ask questions provided and answered.
== END 2018-05-12 16:25 | disposition home or self-care (01) ==
LOC: MED 15:08
DX: M25.552 Pain in left hip (principal); J45.909 Unspecified asthma, uncomplicated; E11.9 Type 2 diabetes mellitus without complications; I10 Essential (primary) hypertension; Z90.49 Acquired absence of other specified parts of digestive tract; Z79.899 Other long term (current) drug therapy; Z79.4 Long term (current) use of insulin
CPT/HCPCS: 96372; 99283; J1885

== ENCOUNTER 2018-11-28 16:08 | Emergency (ER) | payer MEDICARE, OTHER ==
[~2018-11-28] VITALS: Ht 165.1 cm; Wt 61.3 kg
[2018-11-28 16:13] VITALS: BP 140/59
--- NOTE | 2018-11-28 16:15 | NUR ---
Patient ambulated to bed 3 with family. RN evaluating patient at bedside.
--- NOTE | 2018-11-28 16:20 | NUR ---
88 Y MALE BIB FROM HOME C/O RT SHOULDER PAIN S/P MECH FALL X 1 DAY. PATIENT STATES HE WAS CHNAGING OUT OF HIS PANTS LAST NIGHT AND FELL AND LANDED ON HIS RT SHOULDER. NO OBVIOUS DEFORMITY. PAIN 03/26. +CMS. VSS AT THIS TIME. PT [id number]. BED IS DOWN, LOCKED, BED RAIL X 1, ERMD TO SEE PT. PMH-DEPRESSION, HIGH CHOLESTEROL, DM RX- UNKNOWN INSULIN
--- NOTE | 2018-11-28 16:21 | NUR ---
PT AMBULATIVE WITH CANE
--- NOTE | 2018-11-28 16:26 | NUR ---
ACCU CHECK 170
--- NOTE | 2018-11-28 16:27 | NUR ---
XRAY AT BEDSIDE
--- NOTE | 2018-11-28 16:27 | NUR ---
DR DAY AT BEDSIDE
--- NOTE | 2018-11-28 16:44 | NUR ---
PT AMB TO RESTROOM WITH STEADY GAIT
--- NOTE | 2018-11-28 17:14 | NUR ---
Dr. Cash re-evaluating patient at bedside.
--- NOTE | 2018-11-28 17:15 | NUR ---
SLING AND SPLINT PLACED ON R ARM BY NATASHA FISHER. PALPABLE RADIAL PULSE.
[2018-11-28 17:48] VITALS: BP 132/63
--- NOTE | 2018-11-28 17:48 | NUR ---
Patient discharged with v/s stable. Written and verbal after care instructions given and explained TO PATIENT AND . Patient alert, oriented and verbalized understanding of instructions. Ambulatory with CANE, STEADY GAIT. All questions addressed prior to discharge. ID band removed. Patient advised to follow up with PMD. Rx of TRAMADOL HYDROCHLORIDE given. Patient educated on indication of medication including possible reaction and side effects. Opportunity to ask questions provided and answered. PT PROVIDED WITH COPY OF XRAY RESULTS.
== END 2018-11-28 17:48 | disposition home or self-care (01) ==
LOC: MED 16:08
DX: S46.911A Strain of unspecified muscle, fascia and tendon at shoulder and upper arm level, right arm, initial encounter (principal); J45.909 Unspecified asthma, uncomplicated; E11.9 Type 2 diabetes mellitus without complications; I10 Essential (primary) hypertension; Z79.4 Long term (current) use of insulin; Z79.899 Other long term (current) drug therapy; W19.XXXA Unspecified fall, initial encounter; Y93.89 Activity, other specified; Y92.89 Other specified places as the place of occurrence of the external cause; Y99.8 Other external cause status
CPT/HCPCS: 73030; 82948; 99283; Q0092

== ENCOUNTER 2018-12-03 19:02 | Emergency (ER) | payer MEDICARE, OTHER ==
[~2018-12-03] VITALS: Ht 165.1 cm; Wt 67.1 kg
[2018-12-03 19:15] VITALS: BP 144/70
--- NOTE | 2018-12-03 19:15 | NUR ---
TO BED # 07 AMBULATORY WITH SON
--- NOTE | 2018-12-03 19:27 | NUR ---
X-Ray at bedside.
--- NOTE | 2018-12-03 19:33 | NUR ---
Dr. Piña examining patient.
--- NOTE | 2018-12-03 19:36 | NUR ---
PT BIB SON FOR C/O RIGHT SHOULDER PAIN X1 WEEK. PT DENIES ANY HX OF FALLS OR TRAUMA. NO OBVIOUS SIGNS OF INJURY NOTED. PATIENT AWAKE AND ALERT. NO S/S OF DISTRESS NOTED AT THIS TIME. BED LOWERED WITH SIDE RAILS UP. SON AT BEDSIDE
[2018-12-03] MEDS ORDERED: KETOROLAC 30 MG/ML VIAL IM ONE (19:40)
[2018-12-03] MEDS ORDERED: HYDROcodone/APAP 5/325 MG 1 TAB TAB PO ONE (19:40)
--- NOTE | 2018-12-03 20:20 | NUR ---
SLING WAS PLACED ON PTS RIGHT SHOULDER
[2018-12-03 20:21] VITALS: BP 144/70
--- NOTE | 2018-12-03 20:22 | NUR ---
Patient discharged with v/s stable. Written and verbal after care instructions given and explained. Patient alert, oriented and verbalized understanding of instructions. Ambulatory with steady gait. All questions addressed prior to discharge. ID band removed. Patient advised to follow up with PMD. Rx of NORCO AND COLACE given. Patient educated on indication of medication including possible reaction and side effects. Opportunity to ask questions provided and answered.
== END 2018-12-03 20:22 | disposition home or self-care (01) ==
LOC: MED 19:02
DX: M75.91 Shoulder lesion, unspecified, right shoulder (principal); E11.9 Type 2 diabetes mellitus without complications; I10 Essential (primary) hypertension; Z90.49 Acquired absence of other specified parts of digestive tract; Z79.4 Long term (current) use of insulin; Z79.899 Other long term (current) drug therapy
CPT/HCPCS: 73030; 96372; 99283; J1885; Q0092